=== PATIENT | female | born 1995 | race Two or more races ===

== ENCOUNTER 2024-01-28 17:04 | Inpatient (IN) | payer OTHER ==
[~2024-01-28] VITALS: Ht 167.6 cm; Wt 81.8 kg
[2024-01-28] MEDS ORDERED: INSU100V SQ (17:15)
[2024-01-28 17:39] LABS: BASOPHILS % (AUTO) 0.4 % (0.0-2.0); EOSINOPHILS % (AUTO) 0.1 % (1.0-6.0); HEMATOCRIT 35.5 % (36-46); HEMOGLOBIN 12.1 g/dL (12.0-16.0); LYMPHOCYTES # (AUTO) 2.8 K/uL (1.0-4.8); LYMPHOCYTES % (AUTO) 24.3 % (22.0-44.0); MEAN CORPUSCULAR HEMOGLOBIN 28.6 pg (26.0-34.0); MEAN CORPUSCULAR VOLUME 84 fL (80-100); MONOCYTES # (AUTO) 0.6 K/uL (0.1-1.0); MONOCYTES % (AUTO) 5.2 % (2.0-9.0); PLATELET COUNT (AUTO) 476 K/uL (150-450); RED BLOOD CELL COUNT(AUTO) 4.22 MIL/uL (4.00-5.20); RED CELL DISTRIBUTION WIDTH 13.1 % (11.5-14.5); WHITE BLOOD COUNT (AUTO) 11.5 K/uL (4.5-11.0)
[2024-01-28] MEDS: SODIUM CHLORIDE 0.9% 1,000 ML IV ONE (17:42)
[2024-01-28] MEDS: KETOROLAC TROMETHAMINE 30 MG/ML VIAL IVP ONE (17:42)
[2024-01-28] MEDS: ONDANSETRON HCL 4 MG/2 ML VIAL IVP ONE (17:42)
[2024-01-28] MEDS: MORPHINE SULFATE 2 MG/ML SYRINGE IVP ONE ×2 (17:43→18:46)
[2024-01-28] MEDS: FAMOTIDINE 20 MG/2 ML VIAL IVP ONE (17:43)
[2024-01-28 17:53] LABS: ANION GAP 11 mmol/L (8-16); CALCIUM, TOTAL 9.9 mg/dL (8.8-10.5); CARBON DIOXIDE 25 mmol/L (22-29); CHLORIDE 98 mmol/L (98-107); CREATININE 0.94 mg/dL (0.60-1.30); GLOMERULAR FILTR. RATE CALC > 60 mL/min (>60); GLUCOSE,RANDOM 195 mg/dL (70-110); POTASSIUM 4.8 mmol/L (3.5-5.1); SODIUM SERUM 134 mmol/L (136-145); UREA NITROGEN, BLOOD 22 mg/dL (7-18)
[2024-01-28 17:59] LABS: ALANINE AMINOTRANSFERASE 41 U/L (12-78); ALBUMIN 3.8 g/dL (3.4-5.0); ALKALINE PHOSPHATASE 100 U/L (46-116); ASPARTATE AMINOTRANSFERASE 33 U/L (15-37); LIPASE 37 U/L (16-77); TOTAL PROTEIN, SERUM 8.7 g/dL (6.4-8.2)
[2024-01-28 18:02] LABS: LACTIC ACID 1.6 mmol/L (0.4-2.0)
[2024-01-28 19:03] LABS: COVID AG,FIA SOURCE NASAL SWAB
[2024-01-28] MEDS ORDERED: SODIUM CHLORIDE 0.9% 100 ML ONE (19:03)
[2024-01-28] MEDS ORDERED: IOHEXOL 350 MG/ML 100 ML VIAL ONE (19:04)
[2024-01-28 19:13] LABS: SARS-COV2 (COVID) ANTIGEN,FIA Negative (Negative)
[2024-01-28] MEDS ORDERED: TRAM-559 PO (20:00)
[2024-01-28] MEDS ORDERED: ALBUTEROL SULFATE 2.5 MG/0.5 ML NEB SOLUTION NEB PRN (20:00)
[2024-01-28] MEDS ORDERED: MAGNESIUM HYDROXIDE SUSPENSION 30 ML UDCUP PO PRN (20:00)
[2024-01-28] MEDS ORDERED: HYDROCODONE/ACETAMINOPHEN 5-325 MG TABLET PO PRN (20:00)
[2024-01-28] MEDS ORDERED: ACETAMINOPHEN 325 MG TABLET PO PRN (20:00)
[2024-01-28] MEDS ORDERED: DEXTROSE 50%-WATER 25 GM/50 ML SYRINGE IVP PRN (20:00)
[2024-01-28] MEDS ORDERED: BISACODYL 10 MG RECTAL RECTAL SUPPOSITORY PR PRN (20:00)
[2024-01-28] MEDS ORDERED: ZOLPIDEM TARTRATE 5 MG TABLET PO PRN (20:00)
[2024-01-28] MEDS ORDERED: LABETALOL HCL 5 MG/ML 20 ML VIAL IVP PRN (20:00)
[2024-01-28] MEDS ORDERED: IPRATROPIUM BROMIDE 0.5 MG/2.5 ML NEB SOLUTION NEB PRN (20:00)
[2024-01-28] MEDS ORDERED: GABA-1181 PO (20:02)
[2024-01-28] MEDS ORDERED: LEVO50 PO (20:04)
[2024-01-28] MEDS: MORPHINE SULFATE 2 MG/ML SYRINGE IVP PRN (21:48)
[2024-01-28 22:09] VITALS: BP 124/68; PULSE 110; RESP 19; TEMP 98.7
[2024-01-28] MEDS: ONDANSETRON HCL 4 MG/2 ML VIAL IVP PRN (22:34)
[2024-01-28 22:47] VITALS: PULSE 105
[2024-01-29] MEDS: HEPARIN SODIUM,PORCINE 5,000 UNITS/ML VIAL SQ SCH (00:47)
[2024-01-29 03:12] VITALS: BP 131/84; PULSE 109; RESP 18; TEMP 98.3
[2024-01-29 06:16] LABS: GLUCOMETER DEV NAME(LOC) 4E.2; GLUCOSE,POINT OF CARE 103 MG/DL (70-110)
[2024-01-29 08:18] VITALS: BP 126/83; PULSE 110; RESP 18; TEMP 98.2
[2024-01-29] MEDS: PANTOPRAZOLE SODIUM 40 MG/VIAL IVP SCH (08:20)
[2024-01-29] MEDS ORDERED: DEXTROSE 50%-WATER 25 GM/50 ML SYRINGE IVP PRN (11:00)
[2024-01-29] MEDS: INSULIN LISPRO 100 UNITS/ML SQ PRN (11:49)
[2024-01-29 12:01] LABS: GLUCOMETER DEV NAME(LOC) 6S.2; GLUCOSE,POINT OF CARE 135 MG/DL (70-110)
[2024-01-29 19:10] VITALS: BP 129/78; PULSE 110; RESP 20; TEMP 98.5
[2024-01-29 23:01] LABS: GLUCOMETER DEV NAME(LOC) 6N.2B; GLUCOSE,POINT OF CARE 156 MG/DL (70-110)
[2024-01-29 23:01] LABS: GLUCOMETER DEV NAME(LOC) 4E.2; GLUCOSE,POINT OF CARE 145 MG/DL (70-110)
[2024-01-29 23:01] LABS: GLUCOMETER DEV NAME(LOC) 6S.2; GLUCOSE,POINT OF CARE 127 MG/DL (70-110)
[2024-01-30 04:10] VITALS: BP 130/85; PULSE 110; RESP 19; TEMP 98.4
[2024-01-30 08:10] VITALS: BP 96/58; PULSE 103; RESP 19; TEMP 98.4
[2024-01-30 17:31] LABS: GLUCOMETER DEV NAME(LOC) 6S.2; GLUCOSE,POINT OF CARE 149 MG/DL (70-110)
[2024-01-30 17:31] LABS: GLUCOMETER DEV NAME(LOC) 6N.2B; GLUCOSE,POINT OF CARE 174 MG/DL (70-110)
== END 2024-01-30 16:12 | DRG 74 ==
LOC: EMS 17:07 → 6N 18:55
PROVIDERS: ADMIT Hospitalist; ATTEND Hospitalist
DX: E10.43 Type 1 diabetes mellitus with diabetic autonomic (poly)neuropathy (principal); K31.84 Gastroparesis; E03.9 Hypothyroidism, unspecified; Z20.822 Contact with and (suspected) exposure to COVID-19; Z96.41 Presence of insulin pump (external) (internal); Z88.1 Allergy status to other antibiotic agents; Z79.4 Long term (current) use of insulin
CPT/HCPCS: 74177; 80053; 82962; 83605; 83690; 84703; 85025; 93005; 99285; C9113; J1644; J1885; J2270; J2405; J7030; J7050; Q9967